=== PATIENT | female | born 2000 | race Caucasian/White ===

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

== ENCOUNTER 2024-12-10 13:17 | Emergency (ER) | payer OTHER ==
[2024-12-10] MEDS ORDERED: dexAMETHasone 10 MG/ML VIAL ONE (14:00)
[2024-12-10] MEDS ORDERED: DIPHENHYDRAMINE 50 MG/ML VIAL ONE (14:01)
[2024-12-10] MEDS ORDERED: NA CHLORIDE 0.9% 1,000 ML ONE (14:01)
[2024-12-10] MEDS ORDERED: KETOROLAC 30 MG/ML INJ ONE (14:01)
--- NOTE | 2024-12-10 15:20 | ER ---
Nurse's Notes [facility] Name: Jessica Smith Age: 24 yrs Sex: Female : 2000 Arrival Date: 12/10/2024 Time: 13:17 Bed 16 Private MD: Diagnosis: Migraine without aura, not intractable Presentation: 12/10 13:33 Chief complaint: EMS states: migraine that started this morning at 0700. kj2 13:34 Coronavirus screen: Client denies travel out of the [place] in the last 14 days. Ebola ss Screen: Patient denies exposure to infectious person. Patient denies travel to an Ebola-affected area in the 21 days before illness onset. Initial Sepsis Screen: Does the patient meet any 2 criteria? No. Patient's initial sepsis screen is negative. Does the patient have a suspected source of infection? No. Patient's initial sepsis screen is negative. Risk Assessment: Do you want to hurt yourself or someone else? Patient reports no desire to harm self or others. Onset of symptoms was December 10, 2024. Care prior to arrival: Medication(s) given: zofran 4 mg, IV initiated. 20 GA, in the right antecubital area. Care prior to arrival: Medication(s) given: Droperidol 1.25mg \T\ 300 mL of NS. 13:34 Acuity: PORFIRIO 3 ss 13:34 Method Of Arrival: EMS: [facility] ss Triage Assessment: 14:10 Headache History: The patient has had previous headaches and this one is similar to kj2 previous episodes. General: Appears in no apparent distress. Pain: Complains of pain in head Pain began 4 hours ago. Pain: Also complains of nausea. 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 - Infectious Disease History:: Denies. - Social history:: Smoking status: unknown. Screenin:30 [facility] ED Fall Risk Assessment (Adult) History of falling in the last 3 months, kj2 including since admission No falls in past 3 months (0 pts) Confusion or Disorientation No (0 pts) Intoxicated or Sedated No (0 pts) Impaired Gait No (0 pts) Mobility Assist Device Used No (0 pt) Altered Elimination No (0 pt) Score/Fall Risk Level 0 - 2 = Low Risk Maintained a safe environment, Hourly rounding (assess needs \T\ fall precautionary measures) done. Abuse screen: Denies threats or abuse. Denies injuries from another. Nutritional screening: No deficits noted. Tuberculosis screening: No symptoms or risk factors identified. Assessment: 13:30 General: Appears in no apparent distress. Behavior is cooperative. Pain: Complains of kj2 pain in head Pain currently is 10 out of 10 on a pain scale. Neuro: Level of Consciousness is awake, alert, obeys commands, Oriented to person, place, time, situation. Cardiovascular: Patient's skin is warm and dry. Respiratory: Airway is patent Respiratory effort is unlabored. GI: No signs and/or symptoms were reported involving the gastrointestinal system. : No signs and/or symptoms were reported regarding the genitourinary system. 14:30 Reassessment: Patient appears in no apparent distress at this time. Patient and/or kj2 family updated on plan of care and expected duration. Pain level reassessed. Patient is alert, oriented x 3, equal unlabored respirations, skin warm/dry/pink. 15:36 Reassessment: Patient appears in no apparent distress at this time. Patient and/or kj2 family updated on plan of care and expected duration. Pain level reassessed. Patient is alert, oriented x 3, equal unlabored respirations, skin warm/dry/pink. Vital Signs: 13:42 BP 126 / 71; Pulse 77; Resp 16; Temp 98.3(O); Pulse Ox 100% on R/A; tm3 14:30 BP 110 / 63; Pulse 69; Resp 20; Pulse Ox 100% on R/A; kj2 15:36 BP 114 / 81; Pulse 74; Resp 20; Temp 98; Pulse Ox 100% ; kj2 Olvin Coma Score: 13:39 Eye Response: spontaneous(4). Motor Response: obeys commands(6). Verbal Response: kb oriented(5). Total: 15. ED Course: 13:30 Patient has correct armband on for positive identification. Bed in low position. Call kj2 light in reach. Provided Education on: call light. 13:30 Maintain EMS IV. Dressing intact. Good blood return noted. Site clean \T\ dry. Gauge \T\ kj 2 site: 20g right aC. Flushed with 10 mL NS. 13:33 Patient arrived in ED. kj2 13:33 Clarita Meyer MD is Attending Physician. sp3 13:34 Triage completed. ss 13:35 Arm band placed on right wrist. ss 13:36 Arabella Mitchell [facility]NP-C [facility]. kb 13:56 Rocio Whitten, EVER is Primary Nurse. kj2 15:42 No provider procedures requiring assistance completed. IV discontinued, intact, kj2 bleeding controlled, No redness/swelling at site. Pressure dressing applied. Administered Medications: 14:07 Drug: Ketorolac IVP 15 mg IVP once Route: IVP; Site: right antecubital; kj2 15:44 Follow up: Response: No adverse reaction kj2 14:07 Drug: Decadron - Dexamethasone IVP 10 mg IVP once Route: IVP; Site: right antecubital; kj2 15:43 Follow up: Response: No adverse reaction kj2 14:08 Drug: NS 0.9% IV 1000 ml IV at 1000 ml once; to be given as a bolus over 60 minutes kj2 Route: IV; Rate: 1000 ml; Site: right antecubital; 15:44 Follow up: IV Status: Completed infusion; IV Intake: 1000ml kj2 14:08 Drug: diphenhydrAMINE IVP 12.5 mg IVP once Route: IVP; Site: right antecubital; kj2 15:44 Follow up: Response: No adverse reaction kj2 Medication: 14:10 VIS not applicable for this client. kj2 Intake: 15:44 IV: 1000ml; Total: 1000ml. kj2 Outcome: 15:20 Discharge ordered by . kb 15:43 Discharged to home ambulatory, with family, kj2 15:43 Condition: stable 15:43 Discharge instructions given to patient, family, Instructed on discharge instructions, follow up and referral plans. Demonstrated understanding of instructions, follow-up care, 15:45 Patient left the ED. kj2 Signatures: Arabella Mitchell FNP-C SMALL ENGINE SPECIALIST-Ckmamta Marlon Pickett tm3 Barbara Turcios, RN RN ss Clarita Meyer MD MD sp3 Rocio Whitten RN RN kj2
--- NOTE | 2024-12-10 15:20 | EDPHYS ---
Physician Documentation [facility] Name: Jessica Smith Age: 24 yrs Sex: Female : 2000 Arrival Date: 12/10/2024 Time: 13:17 Bed 16 Private MD: ED Physician Clarita Meyer HPI: 12/10 13:36 This 24 yrs old Female presents to ER via EMS with complaints of Headache. kb 13:36 Pt is a 24 year old female who presents for migraine headache that started upon waking kb this morning. States she had a slight headache when she went to bed. Reports she used her sumatriptan that she normally takes for migraines but it made the pain worse this morning. Reports nausea, vomiting, photophobia. States this migraine is similar to previous.. 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 - Infectious Disease History:: Denies. - Social history:: Smoking status: unknown. ROS: 13:36 Constitutional: As per HPI kb Exam: 13:36 Constitutional: This is a well developed, well nourished patient who is awake, alert, kb and in no acute distress. Head/Face: Normocephalic, atraumatic. ENT: Moist Mucous membranes Cardiovascular: Regular rate Respiratory: Respirations even and unlabored. No increased work of breathing. Talking in full sentences Skin: Warm, dry with normal turgor. Normal color. MS/ Extremity: Pulses equal, no cyanosis. Neurovascular intact. Full, normal range of motion. Neuro: Awake and alert, GCS 15, oriented to person, place, time, and situation. Vital Signs: 13:42 BP 126 / 71; Pulse 77; Resp 16; Temp 98.3(O); Pulse Ox 100% on R/A; tm3 14:30 BP 110 / 63; Pulse 69; Resp 20; Pulse Ox 100% on R/A; kj2 15:36 BP 114 / 81; Pulse 74; Resp 20; Temp 98; Pulse Ox 100% ; kj2 [place] Coma Score: 13:39 Eye Response: spontaneous(4). Motor Response: obeys commands(6). Verbal Response: kb oriented(5). Total: 15. MDM: 13:34 Medical Screening Exam initiated sp3 13:39 Data reviewed: vital signs, nurses notes. Historians other than the Patient: EMS: [facility]. 15:19 Differential diagnosis: cluster headache, migraine, tension headache. I considered the kb following discharge prescriptions or medication management in the emergency department I discussed and recommended Over The Counter medications, Pain Medications: At this time, prescription pain medications are not recommended. Test considered but Not performed: CT: CT considered but migraine is similar to previous. Counseling: I had a detailed discussion with the patient and/or guardian regarding the historical points, exam findings, and any diagnostic results supporting the discharge/admit diagnosis, the need for outpatient follow up, a family practitioner, to return to the emergency department if symptoms worsen or persist or if there are any questions or concerns that arise at home. Response to treatment: the patient's symptoms have resolved after treatment. 12/10 13:40 Order name: IV Start; Complete Time: 14:08 kb Administered Medications: 14:07 Drug: Ketorolac IVP 15 mg IVP once Route: IVP; Site: right antecubital; kj2 15:44 Follow up: Response: No adverse reaction kj2 14:07 Drug: Decadron - Dexamethasone IVP 10 mg IVP once Route: IVP; Site: right antecubital; kj2 15:43 Follow up: Response: No adverse reaction kj2 14:08 Drug: NS 0.9% IV 1000 ml IV at 1000 ml once; to be given as a bolus over 60 minutes kj2 Route: IV; Rate: 1000 ml; Site: right antecubital; 15:44 Follow up: IV Status: Completed infusion; IV Intake: 1000ml kj2 14:08 Drug: diphenhydrAMINE IVP 12.5 mg IVP once Route: IVP; Site: right antecubital; kj2 15:44 Follow up: Response: No adverse reaction kj2 Disposition Summary: 12/10/24 15:20 Discharge Ordered Notes: Location: Home Condition: Stable kb Diagnosis - Migraine without aura, not intractable kb Followup: kb - With: Emergency Department - When: As needed - Reason: Worsening of condition Followup: kb - With: Private Physician - When: 2 - 3 days - Reason: Recheck today's complaints, Continuance of care, Re-evaluation by your physician Discharge Instructions: - Discharge Summary Sheet kb - Migraine Headache, [id number] kb Forms: - Medication Reconciliation Form kb - Antibiotic Education kb - Prescription Opioid Use kb - Patient Portal Instructions kb - Leadership Thank You Letter kb Signatures: Arabella Mitchell FNP-C Barbara Yost, RN RN ss Clarita Meyer MD MD sp3 Rocio Whitten RN RN kj2
[2024-12-10 15:50] VITALS: O2SAT 100
[2024-12-10 15:52] VITALS: BP 114/81; TEMP 98
== END 2024-12-10 15:45 | disposition home or self-care (01) ==
LOC: ER 13:17
DX: G43.009 Migraine without aura, not intractable, without status migrainosus (principal)
CPT/HCPCS: J1200; J1100; J7030